=== PATIENT | female | born 1985 | race Caucasian/White ===

== ENCOUNTER 2020-08-10 18:55 | Emergency (ER) | payer SELFPAY ==
[~2020-08-10] VITALS: Ht 160 cm; Wt 113.4 kg
[2020-08-10 19:38] VITALS: Ht 160 cm; Wt 113.4 kg
[2020-08-10] MEDS ORDERED: METHOCARBAMOL500 MG PO (20:27)
[2020-08-11 02:42] VITALS: BP 142/78
== END 2020-08-10 21:17 | disposition home or self-care (01) ==
LOC: D.ER 18:55
DX: R51 Headache (principal); S16.1XXA Strain of muscle, fascia and tendon at neck level, initial encounter; V89.2XXA Person injured in unspecified motor-vehicle accident, traffic, initial encounter